=== PATIENT | female | born 1960 | race Caucasian/White ===

== ENCOUNTER → 2021-07-23 15:49 | Outpatient (POV) | payer OTHER, SELFPAY | PROVIDERS: Visit Provider Dermatology | DX: Z00.00 Encounter for general adult medical examination without abnormal findings (principal) ==

== ENCOUNTER 2021-08-24 11:26 | Emergency (ER) | payer OTHER, SELFPAY ==
[2021-08-24 11:27] VITALS: BP 123/74; PULSE 77; RESP 16; TEMP 36.6; O2SAT 98; BMI 23.5
--- NOTE | 2021-08-24 12:32 | HMH.EDGENADL ---
ED Disposition Clinical Impression: Infection of skin and subcutaneous tissue Disposition: Home, Self-Care Condition on Discharge: Good Instructions: DI for Skin Abscess Prescriptions: Sulfamethoxazole/Trimethoprim [Bactrim DS tablet] 1 each PO BID #10 tab Transmission Status: Received by [id number] Referrals: Pat Estrada [Primary Care Provider] - - Critical Care Critical Care Time: No Attestation: On 08/24/21, the high probability of a clinically significant, sudden or life threatening deterioration of the following system(s) required my full and direct attention, intervention and personal management. The time I documented below is in addition to time spent performing reported procedures but includes the following listed in this critical care notation. Medical Decision Making - Medical Records Medical records reviewed: Yes: I reviewed the patient's medical records. - Waylon Inquiry Pt receiving controlled substance: No Waylon was queried for this patient: No Vital Signs: 08/24/21 11:27 08/24/21 14:52 Temperature 98 F 98 F Temperature Source Oral Oral Pulse Rate 78 Pulse Rate [Radial] 77 Respiratory Rate 16 16 Blood Pressure 117/65 Blood Pressure [Right Arm] 123/74 Blood Pressure Mean [Right Arm] 90 Blood Pressure Position Sitting Blood Pressure Position [Right Arm] Sitting 02 Sat by Pulse Oximetry 98 Oxygen Delivery Method Room Air Room Air Medical Decision Narrative: patient is a 60-year-old female with no past medical history presenting to the ED with edema of her groin. Patient is awake, alert, not in acute distress. Patient is medically stable, afebrile. Physical exam is remarkable for area of erythema in the right inguinal canal with area of fluctuance noted due to a ingrown hair. [id number] ultrasound was performed which did not show any district fluid collection but showed cobblestone and subcutaneous edema Sting with cellulitis. At this point I do not believe the patient needs any further imaging or lab work. Patient is written for Bactrim. Patient is given strict return precautions and follow-up instructions. General Adult HPI - General Stated complaint: possible infection in groin area Time Seen by Provider: 08/24/21 11:30 Source of Information: Patient Limitations: No Limitations - History of Present Illness HPI narrative: Patient is a 60-year-old female with no past medical history presenting to the ED for a skin infection. Patient states that she had a ingrown follicle in her groin area which has progressively worsened. Patient states that she has now noticed a fluctuant in the area with surrounding erythema. Patient states that the erythema progressively worsened. She denies any drainage out of the area. She denies any fevers, chills, nausea, vomiting. She denies any recent antibiotics. - Related Data Previous Rx's Medication Instructions Recorded Sulfamethoxazole/Trimethoprim 1 each PO BID #10 tab 08/24/21 [Bactrim DS tablet] Allergies Allergy/AdvReac Type Severity Reaction Status Date / Time No Known Allergies Allergy Unverified 07/14/17 15:27 [facility] History - Hepatitis A Screen Attestation statement:: This patient has been screened for Hepatitis A risk factors. I have reviewed the patient's past medical history: Yes ROS Obtained: Yes All systems reviewed & no additional complaints Physical Exam - General General appearance: alert, in no apparent distress - Head Head exam: atraumatic, normocephalic, normal inspection - Eye Eye exam: Present: normal appearance, PERRL, EOMI - ENT ENT exam: Present: normal exam, normal oropharynx, mucous membranes moist, TM's normal bilaterally, normal external ear exam - Neck Neck exam: Present: normal inspection, full ROM, trachea midline. Absent: meningismus, lymphadenopathy - Chest Chest inspection: Present: normal inspection, symmetric chest wall rise. Absent: tend
[2021-08-24 14:52] VITALS: BP 117/65; PULSE 78; RESP 16; TEMP 36.6; O2SAT 98
== END 2021-08-24 14:54 | disposition home or self-care (01) ==
PROVIDERS: Emergency Provider Emergency Medicine; PCP Internal Medicine
DX: L02.214 Cutaneous abscess of groin (principal)
CPT/HCPCS: 10060; 99282

== ENCOUNTER 2022-04-02 14:50 | Emergency (ER) | payer OTHER, SELFPAY ==
[2022-04-02 15:45] VITALS: BP 142/73; PULSE 63; RESP 18; TEMP 37; O2SAT 98; BMI 23.1
--- NOTE | 2022-04-02 16:06 | EXP.UTC ---
Discharge Plan Disposition Patient Disposition: Home, Self-Care Condition: Good Prescriptions Prescriptions: New cephalexin 500 mg capsule 500 mg PO QID 7 Days Qty: 28 0RF mupirocin 2 % ointment 1 applic topical TID 10 Days Qty: 22 0RF Rx Instructions: apply to open area on lower leg No Action sulfamethoxazole-trimethoprim 1 EACH tablet 1 each PO BID Qty: 10 0RF Referrals Follow up/Referrals: Pat Estrada [Primary Care Provider] - See instructions Activity Restrictions/Add. Instructions Additional Instructions/Restrictions: *Start antibiotic(s) immediately and be sure to take as ordered for the FULL length of time although you may be feeling better or start to see improvement in the next 24-48 hours *Monitor closely. Outlined redness so that you can monitor easier. Follow up immediately for new or worsening symptoms including but not limited to redness, swelling, streaking from site fever or chills. *Warm compress 15 minutes 3-4 times day *Never squeeze or pop these on your own. Seek immediate medical attention next time this occurs *Monitor Temp. Tylenol every 4 hours as needed and ibuprofen every 6 hours as needed (as long as your primary care doctor has told you that it is ok to take both. For fever, aches, pain. ER if no less that 101 despite Tylenol and ibuprofen ?Follow up with your family doctor/primary care physician in the next 48-72 hours if no improvement Clinical Impressions Clinical Impression: Cellulitis Instructions Patient Instructions: Cellulitis Discharge ED Provider: Marisol Lemon [facility] General Stated complaint: possible spider bite Mode of Arrival: Ambulatory Source of Information: Patient Limitations: No Limitations Time Seen by Provider: 04/02/22 16:06 Description of Symptoms (Recalled from Triage Doc. by RN): PATIENT C/O SPIDER BITE TO LEFT MCGOVERN X 1 WEEK HEENT Symptoms (Recalled from RN notes): No Resp Symptoms (Recalled from RN notes): No Skin Symptoms (Recalled from RN notes): Yes MS Symptoms (Recalled from RN notes): No Functional Status (Recalled from RN notes): WNL History of Present Illness Provider Complaint: Patient state that she does alot of gardening and she noticed a place on her left mcgovern area that the redness is getting worse and has open are in the middle States that she is not sure if she may have been bitten by something or maybe something had stuck her in the leg while gardening State that it started out like a little bump area and she mashed it but nothing came out Related Data Previous Rx's Medication Instructions Recorded sulfamethoxazole 800 1 each PO BID #10 tabs 08/24/21 mg-trimethoprim 160 mg tablet cephalexin 500 mg capsule 500 mg PO QID 7 days #28 caps 04/02/22 mupirocin 2 % topical ointment 1 applic topical TID 10 days #22 04/02/22 grams Allergies Allergy/AdvReac Type Severity Reaction Status Date / Time No Known Allergies Allergy Verified 04/02/22 15:58 Worker's Comp Is this a Worker's Comp case?: No PFSH PFSH Medical History (Updated 04/02/22 @ 16:16 by Marisol Lemon APRN) Anxiety Asthma Surgical History (Updated 04/02/22 @ 15:57 by Aiyana Ford RN) History of appendectomy History of hysterectomy Social History (Updated 04/02/22 @ 15:57 by Aiyana Ford RN) Smoking Status: Unknown if ever smoked alcohol intake: current current occupational status: other Travel in the last 8 weeks: None ROS Obtained: Yes All systems reviewed & no additional complaints except as documented and Yes Systems reviewed as appropriate & no additional complaints except as documented Constitutional Constitutional: Reports system reviewed and no additional complaints, except as documented, Reports as per HPI, Denies body ache, Denies chills and Denies fever(s) Cardiovascular Cardiovascular: Reports system reviewed and no additional complaints, except as documented and Reports as per HPI Respiratory Re
[2022-04-02 16:17] VITALS: BP 142/73; PULSE 63; RESP 18; TEMP 37; O2SAT 98
== END 2022-04-02 16:20 | disposition home or self-care (01) ==
PROVIDERS: Emergency Provider Nurse Practitioner; PCP Internal Medicine
DX: L03.116 Cellulitis of left lower limb (principal)
CPT/HCPCS: 99212; G0463

== ENCOUNTER 2022-04-19 12:49 | Emergency (ER) | payer OTHER, SELFPAY ==
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
[2022-04-19 13:08] VITALS: BP 160/81; PULSE 71; RESP 18; TEMP 36.8; O2SAT 97; BMI 23.6
[2022-04-19 13:43] VITALS: BP 160/81; PULSE 71; RESP 18; TEMP 36.8
== END 2022-04-19 13:44 | disposition home or self-care (01) ==
PROVIDERS: Emergency Provider Nurse Practitioner Family; PCP Internal Medicine
DX: S01.85XA Open bite of other part of head, initial encounter (principal); W64.XXXA Exposure to other animate mechanical forces, initial encounter
CPT/HCPCS: 90471; 90714; 99212; G0463

== ENCOUNTER → 2023-03-31 09:31 | Outpatient (POV) | payer OTHER, SELFPAY | PROVIDERS: Visit Provider Dermatology | DX: Z00.00 Encounter for general adult medical examination without abnormal findings (principal) ==

== ENCOUNTER 2023-07-13 15:40 | Emergency (ER) | payer OTHER, SELFPAY ==
[2023-07-13 15:41] VITALS: BP 190/77; PULSE 83; RESP 17; TEMP 36.7; O2SAT 97; BMI 23.6
--- NOTE | 2023-07-13 15:56 | PC.NURSE ---
Dr. Harvey at [facility] for pt eval
--- NOTE | 2023-07-13 16:01 | HMH.EDGENADL ---
Discharge Plan Disposition Patient Disposition: Home, Self-Care Prescriptions Prescriptions: New amoxicillin-pot clavulanate 875-125 mg tablet 1 tab PO BID 10 Days Qty: 20 0RF No Action mupirocin 2 % ointment 1 applic topical TID 7 Days Qty: 22 0RF amoxicillin-pot clavulanate 875-125 mg Tablet 1 tab PO Q12H Qty: 20 0RF Referrals Follow up/Referrals: Provider,Referral, MD [Primary Care Provider] - See instructions Activity Restrictions/Add. Instructions Additional Instructions/Restrictions: Call your family doctor to establish care for this visit to the emergency department and schedule follow-up within 48 hours to ensure improvement. If you have any worsening of your condition or any other concerning signs or symptoms, return to the emergency department or your primary care doctor for further evaluation. Clinical Impressions Clinical Impression: Dog bite Discharge ED Provider: Dashawn Harvey General Adult HPI General Stated complaint: [id number] bite, Rt hand Time Seen by Provider: 07/13/23 15:46 History of Present Illness HPI narrative: 62-year-old female no relevant medical history, tetanus last 1 years ago presenting with dog bite. Patient was bit on her hand by her own dog which has vaccines 1 day prior to arrival. Since that time, noticed red streaking from the thenar eminence up to her right elbow. Came to the ER for further evaluation. No fevers or chills, nausea or vomiting, or any other concerns. Related Data Previous Rx's Medication Instructions Recorded amoxicillin 875 mg-potassium 1 tab PO Q12H #20 tabs 04/19/22 clavulanate 125 mg tablet mupirocin 2 % topical ointment 1 applic topical TID 7 days #22 04/19/22 grams amoxicillin 875 mg-potassium 1 tab PO BID 10 days #20 tabs 07/13/23 clavulanate 125 mg tablet Allergies Allergy/AdvReac Type Severity Reaction Status Date / Time No Known Allergies Allergy Verified 04/02/22 15:58 [facility] Disclaimer: The information contained in this section may have been updated after the patient was seen, as this information can be updated by other users. Medical History Anxiety Asthma Surgical History History of appendectomy History of hysterectomy Social History Smoking Status: Unknown if ever smoked alcohol intake: current current occupational status: other Travel in the last 8 weeks: None ROS Obtained: Yes All systems reviewed & no additional complaints except as documented Physical Exam General General appearance: alert and in no apparent distress Head Head exam: atraumatic and normocephalic Eye Eye exam: Present normal appearance, PERRL and EOMI ENT ENT exam: Present mucous membranes moist Neck Neck exam: Present normal inspection, full ROM and trachea midline Respiratory Respiratory exam: Absent respiratory distress, wheezes, stridor, accessory muscle use or prolonged expiratory phase Cardiovascular Cardiovascular exam: Present normal rhythm Abdominal Exam Abdominal exam: Present soft; Absent distention, tenderness, guarding, rebound, rigidity or normal bowel sounds Extremities Exam Extremities exam: Present other (Inflamed lymphatic channel right upper extremity extending from right thenar eminence to right axilla. Axillary adenopathy.); Absent edema Neurological Exam Neurological exam: Present alert, oriented X3, CN II-XII intact and normal gait; Absent motor sensory deficit Skin Skin exam: Present warm and dry; Absent diaphoresis or erythema Medical Decision Making Medical Records Medical records reviewed: Yes I reviewed the patient's medical records. Waylon Inquiry Pt receiving controlled substance: No Waylon was queried for this patient: No Medical Decision Narrative: 62-year-old female no relevant medical history, tetanus last 1 years ago
[2023-07-13 16:15] VITALS: BP 171/84; PULSE 77; RESP 16; TEMP 36.7; O2SAT 99
== END 2023-07-13 16:16 | disposition home or self-care (01) ==
PROVIDERS: Emergency Provider Emergency Medicine
DX: S41.151A Open bite of right upper arm, initial encounter (principal); W54.0XXA Bitten by dog, initial encounter
CPT/HCPCS: 99283